=== PATIENT | male | born 1945 | race Caucasian/White ===

== ENCOUNTER → 2016-10-30 | Outpatient (CLI) | payer OTHER ==
--- NOTE | 2016-10-30 09:36 | RAD ---
PROCEDURE MRI left knee without contrast dated 10/30/2016. HISTORY Chronic knee pain. TECHNIQUE Routine multiplanar multisequence MR imaging left knee performed. COMPARISON None. FINDINGS Moderate to severe tricompartmental hypertrophic change with prominent marginal osteophytes. Thinning and surface irregularity of the articular cartilage throughout. Broad zones of full-thickness cartilage loss over the weightbearing surface medial femoral condyle and medial tibial plateau. There is also full-thickness cartilage loss at the medial femoral trochlea and trochlear groove and patellar apex. Moderate-sized joint effusion. No significant popliteal cyst. Prominent loose bodies at the posterior joint space. Anterior cruciate ligament is not identified and may be chronically torn. The PCL is intact. Medial and lateral collateral complexes are intact. Iliotibial band, popliteus tendon and pes anserine complex within normal limits. Quadriceps and patellar tendon are intact. No abnormality of the medial or lateral retinaculum. Medial meniscus is blunted in morphology throughout and deficient in size. There is also blunted morphology of the anterior horn and body of lateral meniscus with vertical long-axis tear extending into the posterior horn. Moderate degenerate change of the proximal tibiofibular joint with subchondral cystic change. 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 There is full-thickness cartilage loss throughout the medial compartment with patchy subchondral edema. Full-thickness cartilage loss is also noted in the anterior compartment. - Moderate size joint effusion with small loose bodies at the posterior joint space. - Nonvisualization of the anterior cruciate ligament, likely related to chronic tear and/or severe mucoid degeneration. 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 Electronically signed by: Joey Bishop (October 30, 2016 09:35:02)
== END | disposition home or self-care (01) ==
LOC: MRI 08:07
PROVIDERS: ATTEND Nurse Practitioner Adult Health
DX: M25.562 Pain in left knee (principal)
CPT/HCPCS: 73721